=== PATIENT | male | born 1990 | race African-American/Black ===

== ENCOUNTER 2024-09-07 16:34 | Emergency (ER) | payer MEDICAID ==
[~2024-09-07] VITALS: Ht 180.3 cm; Wt 84.4 kg
[2024-09-07 17:27] VITALS: PULSE 89; RESP 16; TEMP 97.5; O2SAT 100
[2024-09-07] MEDS ORDERED: KETOROLAC TROMETHAMINE 60 MG/2 ML VIAL IM STA (17:30)
== END 2024-09-07 19:10 | disposition home or self-care (01) ==
LOC: ER 17:02
DX: S93.492A Sprain of other ligament of left ankle, initial encounter (principal); X50.1XXA Overexertion from prolonged static or awkward postures, initial encounter; Y93.01 Activity, walking, marching and hiking; Y92.89 Other specified places as the place of occurrence of the external cause
CPT/HCPCS: 99283

== ENCOUNTER 2025-02-25 15:14 | Emergency (ER) | payer MEDICAID ==
[~2025-02-25] VITALS: Ht 180.3 cm; Wt 84.4 kg
[2025-02-25 15:35] VITALS: TEMP 98
[2025-02-25] MEDS: DEXAMETHASONE SOD PHOS 10 MG/1 ML VIAL IM ONE (16:17)
[2025-02-25 16:30] VITALS: PULSE 78; RESP 18; O2SAT 98
[2025-02-25] MEDS ORDERED: AZITHROMYCIN250 MG PO (16:31)
== END 2025-02-25 16:55 | disposition home or self-care (01) ==
LOC: ER 15:37
DX: H92.01 Otalgia, right ear (principal); J02.9 Acute pharyngitis, unspecified; R05.9 Cough, unspecified; I10 Essential (primary) hypertension
CPT/HCPCS: 99283; J1100